=== PATIENT | male | born 1990 | race Two or more races ===

== ENCOUNTER 2023-10-10 10:02 | Emergency (ER) | payer MEDICAID ==
[~2023-10-10] VITALS: Ht 180.3 cm; Wt 143.2 kg
[2023-10-10 10:06] VITALS: BP 150/87; PULSE 89; RESP 18; TEMP 98
[2023-10-10] MEDS: IBUPROFEN 600 MG TABLET PO ONE (13:03)
[2023-10-10] MEDS ORDERED: CLOT113C TP (13:59)
[2023-10-11] MEDS ORDERED: FLUC150T61 PO (18:57)
[2023-10-11] MEDS ORDERED: IBUP-1492 PO (18:57)
[2023-10-11] MEDS ORDERED: HYDR30CR39 TP (18:57)
[2023-10-11] MEDS ORDERED: CEPH-558 PO (18:57)
== END 2023-10-10 14:11 | disposition home or self-care (01) ==
LOC: EMS 10:02
DX: N47.6 Balanoposthitis (principal); M79.672 Pain in left foot
CPT/HCPCS: 99283

== ENCOUNTER 2023-10-11 17:11 | Emergency (ER) | payer MEDICAID ==
[~2023-10-11] VITALS: Ht 180.3 cm; Wt 145.4 kg
[~2023-10-11 17:11] MED LIST: CLOT113C TP
[2023-10-11 17:22] VITALS: TEMP 99.3
[2023-10-11] MEDS ORDERED: IBUP-1492 PO (18:57)
[2023-10-11] MEDS ORDERED: FLUC150T61 PO (18:57)
[2023-10-11] MEDS ORDERED: CEPH-558 PO (18:57)
[2023-10-11] MEDS ORDERED: HYDR30CR39 TP (18:57)
[2023-10-11] MEDS: IBUPROFEN 800 MG TABLET PO ONE (18:58)
[2023-10-11 19:00] VITALS: BP 129/82; PULSE 79; RESP 16
== END 2023-10-11 21:20 | disposition home or self-care (01) ==
LOC: EMS 17:11
DX: N47.6 Balanoposthitis (principal)
CPT/HCPCS: 99283